=== PATIENT | female | born 1975 | race Caucasian/White ===

== ENCOUNTER 2017-02-25 05:57 | Inpatient (IN) | payer OTHER ==
[~2017-02-25] VITALS: Ht 152.4 cm; Wt 50.8 kg
[~2017-02-25 05:57] MED LIST: CLARITIN10 MG PO
[2017-02-25] MEDS ORDERED: BUPIVACAINE-MPF/EPI 0.5% 30 ML VIAL INJ ONE (07:28)
[2017-02-25] MEDS ORDERED: CLINDAMYCIN 900 MG in DEXTROSE 5% 100 ML IV ONE (07:30)
[2017-02-25] MEDS ORDERED: DEXAMETHASONE 4 MG/ML VIAL ONE (07:35)
[2017-02-25] MEDS ORDERED: ONDANSETRON 4 MG/2 ML VIAL ONE (07:35)
[2017-02-25] MEDS ORDERED: GLYCOPYRROLATE 0.2 MG/ML VIAL ONE (07:35)
[2017-02-25] MEDS ORDERED: KETOROLAC 30 MG/ML VIAL ONE (07:35)
[2017-02-25] MEDS ORDERED: PHENYLEPHRINE 10 MG/ML VIAL ONE (07:35)
[2017-02-25] MEDS ORDERED: PROPOFOL 200 MG/20 ML VIAL IV ONE (07:35)
[2017-02-25] MEDS ORDERED: SUCCINYLCHOLINE CHLORIDE 200 MG/10 ML VIAL IVP ONE (07:35)
[2017-02-25] MEDS ORDERED: DESFLURANE 240 ML BTL INH ONE (07:35)
[2017-02-25] MEDS ORDERED: LIDOCAINE 2% 100 MG/5 ML SYR IVP ONE (07:35)
[2017-02-25] MEDS ORDERED: ROCURONIUM 50 MG/5 ML VIAL IV ONE (07:35)
[2017-02-25] MEDS ORDERED: MIDAZOLAM 2 MG/2 ML VIAL ONE (07:44)
[2017-02-25] MEDS ORDERED: fentaNYL 0.05 MG/ML VIAL ONE (07:45)
[2017-02-25] MEDS ORDERED: ONDANSETRON 4 MG/2 ML VIAL IVP PRN (08:05)
[2017-02-25] MEDS: HYDROmorphone 1 MG/ML AMP IVP PRN ×4 (09:00→09:30)
--- NOTE | 2017-02-25 09:07 | NUR ---
CM NOTE PER SET DESIGNER FRANCIA EXT [id number], REVIEWS SHOULD GO TO [facility]. INITIAL REVIEW SENT TO [facility] FAX# [phone] PH# [phone] [facility] EXT [id number]
[2017-02-25] MEDS ORDERED: HYDROmorphone PFS 2 MG/ML SYR ONE (09:14)
--- NOTE | 2017-02-25 10:00 | NUR ---
RECEIVED PT FROM OR. AWAKE, ALERT ORIENTED X 4. NO SOB NOTED. BREATHING EVEN AND UNLABORED. DENIES PAIN AT THIS TIME. TRANSFERRED TO BED SAFELY AND COMFORTABLY. ABDOMINAL DRESSING INTACT. NO DISCHARGE NOTED. PT HAS PHAM CATHETER. DRAINING CLEAR YELLOW URINE. ELEVATED BED TO 30 DEGREES. INITIAL VITAL SIGNS TAKEN AND RECORDED. SAFETY PRECAUTION IN PLACE. CALL LIGHT WITHIN REACH.
[2017-02-25 10:04] VITALS: BP 123/73
[2017-02-25] MEDS: MORPHINE SULFATE 4 MG/ML SYR IM/IVP PRN ×3 (10:38→19:29)
--- NOTE | 2017-02-25 10:40 | NUR ---
PT COMPLAINED OF ABDOMINAL PAIN 8/10 MEDICATED ORDERED. NO SOB NOTED. FREQUENT CHECKS DONE.
[2017-02-25 12:00] VITALS: BP 124/89
[2017-02-25] MEDS: ONDANSETRON 4 MG/2 ML VIAL IVP PRN (12:36)
--- NOTE | 2017-02-25 14:00 | NUR ---
PREVIOUS IV ON RIGHT HAND G20 GOT INFILTRATED. REINSERTED G24 IV SALINE LOCK TO PT'S LEFT HAND.
[2017-02-25 16:00] VITALS: BP 132/86
--- NOTE | 2017-02-25 19:30 | NUR ---
PT ENDORSED TO UPCOMING SHIFT FOR CONTINUITY OF CARE. ENDORSED TO DO REASSESSMENT FOR PAIN MEDICATION MORPHINE PRN GIVEN AT 1930.
--- NOTE | 2017-02-25 19:31 | NUR ---
RECD. RESTING IN BED, AWAKE, A/OX4. RESPIRATION EVEN AND UNLABORED. IV SALINE LOCK AT THE LEFT HAND G 24. PATENT AND INTACT. INCISION IN THE ABDOMEN COVERED WITH DRESSING DRY AND INTACT. F/C PATENT DRAINING LIGHT ORANGE URINE. STATED NO HEAVY VAGINAL BLEEDING. JUST MEDICATED FOR PAIN BY AM NURSE, WILL CONTINUE TO MONITOR. PLAN OF CARE FOR THE SHIFT DISCUSSED. VERBALIZED UNDERSTANDING.
[2017-02-25 20:00] VITALS: BP 127/76
--- NOTE | 2017-02-25 20:00 | NUR ---
Patient's Plan of Care was discussed and reviewed with LEARNING SUPPORT AIDE: ROBER ABAD
--- NOTE | 2017-02-25 21:00 | NUR ---
INSTRUCTED TO ALTERNATELY TURN TO SIDES. COMPLAINT OF UNABLE TO SLEEP, WILL CALL MD FOR SLEEPING PILL.
[2017-02-25] MEDS ORDERED: TEMAZEPAM 15 MG CAP PO SCH (21:50)
[2017-02-25] MEDS: ACETAMINOPHEN/CODEINE 300/30MG 1 TAB PO PRN (22:42)
--- NOTE | 2017-02-25 22:42 | NUR ---
UNABLE TO SLEEP, MEDICATED WITH RESTORIL 15 MG. PO ORDERED.
--- NOTE | 2017-02-25 23:50 | NUR ---
SLEEPING COMFORTABLY IN BED.
[2017-02-26] VITALS: BP 135/72
[2017-02-26 04:00] VITALS: BP 125/69
[2017-02-26] MEDS: MORPHINE SULFATE 4 MG/ML SYR IM/IVP PRN ×2 (04:00→21:18)
[2017-02-26] MEDS: ONDANSETRON 4 MG/2 ML VIAL IVP PRN ×2 (04:02→21:18)
--- NOTE | 2017-02-26 04:02 | NUR ---
NAUSEATED, MEDICATED WITH ZOFRAN 4 MG. IVP BY DAKOTA FRIEDMAN.
--- NOTE | 2017-02-26 04:30 | NUR ---
RESTING IN BED, NO NAUSEA NOTED.
--- NOTE | 2017-02-26 05:30 | NUR ---
AWAKE IN BED, DISCONTINUED PHAM CATHETER. INSTRUCTED TO AMBULATE AND CALL NURSE FOR ASSISTANCE. VERBALIZED UNDERSTANDING.
--- NOTE | 2017-02-26 06:56 | NUR ---
CONDITION REMAIN STABLE. WILL ENDORSE TO AM NURSE FOR CONTINUITY OF CARE.
--- NOTE | 2017-02-26 07:05 | NUR ---
AMBULATED TO BR TO VOID, ABLE TO VOID MODERATE AMOUNT OF CLEAR YELLOW URINE. HAD SOME BLEEDING IN THE INCISION SITE. REINFORCED DRESSING BY CHARGE NURSE CLIFFORD. NO MORE BLEEDING NOTED.
--- NOTE | 2017-02-26 07:15 | NUR ---
ENDORSED TO DAKOTA MATTHEWS FOR CONTINUITY OF CARE.
--- NOTE | 2017-02-26 07:20 | NUR ---
RECEIVED REPORT FROM PHILLIP RICHTER. PT A/OX4, PT HAS A ABDOMINAL DRESSING FROM SURGICAL INCISION, IV ON THE LEFT AC, PATENT, INTACT, FLUSHING WELL, NO S/S OF RESPIRATORY DISTRESS OR DISCOMFORT NOTED, SAFETY/FALL PRECAUTIONS IN PLACE, DISCUSSED PLAN OF CARE WITH, PT VERBALIZED UNDERSTANDING, CALL LIGHT IS WITHIN REACH, WILL CONTINUE TO MONITOR.
[2017-02-26 08:00] VITALS: BP 99/63
[2017-02-26] MEDS: ACETAMINOPHEN/CODEINE 300/30MG 1 TAB PO PRN (08:10)
--- NOTE | 2017-02-26 08:52 | NUR ---
CM NOTE CONCURRENT REVIEW SENT TO [facility] FAX# [phone] PH# [phone] [facility] [id number]
--- NOTE | 2017-02-26 09:30 | NUR ---
PT RESTING IN BED, IS AT BEDSIDE.
[2017-02-26] MEDS: HYDROcodone/APAP 5/325 MG 1 TAB TAB PO PRN ×3 (10:18→17:58)
--- NOTE | 2017-02-26 11:30 | NUR ---
PT IS SLEEPING IN BED AT THIS TIME.
--- NOTE | 2017-02-26 13:39 | NUR ---
02/26/17 RD INITIAL ASSESSMENT COMPLETED PLEASE REFER TO NUTRITION ASSESSMENT UNDER CARE ACTIVITY FOR ESTIMATED NUTRITIONAL NEEDS. RD RECOMMENDATIONS: 1. WHEN MEDICALLY APPROPRIATE ADVANCE DIET TO REGULAR TOLERATED. 2. ENCOURAGE INCREASED PO INTAKE. 3. RD WILL F/U 3-5 DAYS; MODERATE RISK. PILLO ROSAS RD
--- NOTE | 2017-02-26 14:00 | NUR ---
PT RESTING IN BED, TALKING ON HER CELL PHONE.
--- NOTE | 2017-02-26 16:30 | NUR ---
PT RESTING IN BED, NO S/S OF RESPIRATORY DISTRESS OR DISCOMFORT NOTED, CALL LIGHT WITHIN REACH.
[2017-02-26 18:00] VITALS: BP 110/72
--- NOTE | 2017-02-26 19:10 | NUR ---
ENDORSED PT TO LVN. ROBER FOR CONTINUITY OF CARE. PT STABLE AT THIS TIME.
--- NOTE | 2017-02-26 19:15 | NUR ---
RECD. RESTING IN BED, AWAKE, A/OX4. RESPIRATION EVEN AND UNLABORED. IV SALINE LOCK AT THE LEFT HAND G 24, PATENT, INTACT. INCISION IN THE LOWER ABDOMEN COVERED WITH DRESSING WITH BINDER, DRY AND INTACT. STATED FEELING BETTER THAN YESTERDAY. PAIN IN THE SITE 11/18, WANTS TO BE MEDICATED LATER.TOLERATING DIET AND PASSING GAS BY BURPING. PLAN OF CARE FOR THE SHIFT DISCUSSED. VERBALIZED UNDERSTANDING.
--- NOTE | 2017-02-26 20:08 | NUR ---
Patient's Plan of Care was discussed and reviewed with SPECIALIST PHYSICIAN: ROBER ABAD
[2017-02-26 21:03] VITALS: BP 106/80
--- NOTE | 2017-02-26 22:30 | NUR ---
AMBULATED TO TO VOID, BACK TO BED AFTER VOIDING.
[2017-02-27] VITALS: BP 113/66
--- NOTE | 2017-02-27 00:10 | NUR ---
COMPLAINT OF DISCOMFORT IN THE INCISION SITE. CHECK DRESSING, NOTED SMALL AMOUNT OF BLOOD SEEPING THROUGH THE GUME. CHANGED DRESSING. MADE COMFORTABLE IN BED.
[2017-02-27] MEDS: MORPHINE SULFATE 4 MG/ML SYR IM/IVP PRN ×2 (01:46→10:09)
--- NOTE | 2017-02-27 04:00 | NUR ---
COMPLAINT OF FEELING SORENESS AT THE UPPER BACK AND LET HIP. ADVISED TO TURN TO SIDES WHEN SLEEPING.
--- NOTE | 2017-02-27 06:56 | NUR ---
CONDITION REMAIN STABLE. WILL ENDORSE TO AM NURSE FOR CONTINUITY OF CARE.
--- NOTE | 2017-02-27 07:10 | NUR ---
RECEIVED REPORT FROM THE HAMPER MAKER MACHINE NURSE AT BEDSIDE FOR CONTINUITY OF CARE. PT IS AWAKE AND ORIENTED. I INTRODUCED MYSELF AND UPDATED THE BOARD. PT IS S/P HYSTERECTOMY 02/25. PT STILL HAS HER ABD BINDER ON-DRESSING INTACT. GOAL FOR TODAY: GET UP AND SIT IN A CHAIR AND TRY TO AMBULATE. PT DID PASS GAS. NOTED PT'S IV ON L HAND 24G SL. NO LABS TODAY. DENIES PAIN, PAIN ONLY WHEN SHE MOVES. REFUSES PAIN MEDS AT THIS TIME. WILL CONTINUE TO MONITOR PT. DR. Brooke SUMNER WAS HERE.
--- NOTE | 2017-02-27 07:45 | NUR ---
PT V/S WITHIN NORMAL RANGE. DENIES PAIN. DENIES VAGINAL BLEEDING. WILL CONTINUE TO MONITOR PT.
[2017-02-27 08:00] VITALS: BP 108/66
--- NOTE | 2017-02-27 10:25 | NUR ---
CM NOTE CONCURRENT REVIEW SENT TO [facility] FAX# [phone] PH# [phone] [facility] [id number]
[2017-02-27] MEDS: HYDROcodone/APAP 5/325 MG 1 TAB TAB PO PRN ×3 (11:44→19:20)
--- NOTE | 2017-02-27 12:00 | NUR ---
PT SITTING IN CHAIR NEXT TO BED. PT IS IN PAIN. SHE WILL SIT FOR A LITTLE WHILE AND THEN, GO BACK TO BED.
--- NOTE | 2017-02-27 14:00 | NUR ---
WOUND CARE DONE. DRESSING CHANGED. HEALING WELL. NO DRAINAGE NOTED. WILL CONTINUE TO MONITOR PT.
--- NOTE | 2017-02-27 15:56 | NUR ---
REMOVED IV PER PT'S REQUEST. CANNULA INTACT. NO BLEEDING NOTED. PT IS DOING FINE. HAD A CALDWELL. GAVE HER NORCO. PT TOLERATED WELL. WILL CONTINUE TO MONITOR PT.
[2017-02-27 16:00] VITALS: BP 110/70
--- NOTE | 2017-02-27 17:10 | NUR ---
PT IS RESTING IN BED. NO SIGNS OF DISTRESS. WILL CONTINUE TO MONITOR PT.
--- NOTE | 2017-02-27 19:10 | NUR ---
ENDORSED PT TO THE [facility] ASSISTANT NURSE AT BEDSIDE FOR CONTINUITY OF CARE. PT C/O HEADACHE. WILL MEDICATE. OTHERWISE, PT IS IN STABLE CONDITION.
--- NOTE | 2017-02-27 19:20 | NUR ---
RECEIVED FROM AM RN IN BED AWAKE AND ALERT. NO SOB. IN BED AWAKE AND SITTING UP IN BED. ABLE TO VERBALIZE NEEDS WELL. CARE PLANS FOR THE NIGHT DISCUSSED WITH HER. AFEBRILE. DENIES ANY BLEEDING PER VAGINA. CALL LIGHT WITH IN REACH. A/O X 4. ROM X 4.
--- NOTE | 2017-02-27 21:41 | NUR ---
SLEEPING AT THIS TIME. MOTHER AT BEDSIDE. NO COMPLAINTS DONE. ENCOURAGED TO CALL FOR ANY HELP SHE MAY NEED OR IF SON HAS ANY SOB. "OK" PT. AFEBRILE. IVF SITE INTACT AND NO INFILTRATION NOTED.
--- NOTE | 2017-02-28 | NUR ---
PT. SLEEPING. NO RESTLESSNESS NOTED. IVF SITE NO INFILTRATION. CALL LIGHT WITH IN REACH.
[2017-02-28 00:11] VITALS: BP 112/70
[2017-02-28] MEDS: HYDROcodone/APAP 5/325 MG 1 TAB TAB PO PRN ×2 (01:14→08:03)
--- NOTE | 2017-02-28 01:18 | NUR ---
PT. AWAKE AND ASSISSTED TO RESTROOM TO URINATE. REQUESTED FOR PAIN RELIEVER AFTER RT SLIGHT PAIN TO INCISION SITE. MEDICATED REQUESTED. A/O X 4. ROM X 4. CLEAR SPEECH.
--- NOTE | 2017-02-28 04:44 | NUR ---
PT. AWAKE AND ASSISTED TO RESTROOM BY MOTHER. AFEBRILE. NO COMPLAINTS DONE. PROVIDED WITH JUICE AND COLD WATER REQUESTED BY MOTHER. CALL LIGHT WITH IN REACH AND ENCOURAGED TO CALL FOR ANY HELP SHE MAY NEED. NO SOB. DENIES PAIN.
--- NOTE | 2017-02-28 07:21 | NUR ---
PT. SLEEPING. WOKE UP EASILY WHEN TOUCHED. NO COMPLAINTS DONE. ENDORSED TO THE NEXT RN FOR CONTINUITY OF CARE.
--- NOTE | 2017-02-28 07:35 | NUR ---
PT LYING IN BED COMFORTABLY AND VOICED NO C/O PAIN AT THIS TIME. PT AAOX4 AND WAS IN NO DISTRESS. SHIFT ASSESSMENT DONE AND CHARTED. PLAN OF CARE, MEDS, TREATMENTS AND SAFETY DISCUSSED WITH PT AND PT VERBALIZED UNDERSTANDING. INCISION SITE TO LOWER ABDOMEN NOTED TO BE CLEAN, DRY AND INTACT WITH ABDOMINAL BINDER APPLIED ON TOP DRESSINGS. WILL CONTINUE TO MONITOR PT.
[2017-02-28 08:00] VITALS: BP 115/65
--- NOTE | 2017-02-28 10:41 | NUR ---
DR. Bola SUMNER WAS IN TO SEE PT AND MD LEFT PRESCRIPTIONS AND DISCHARGE INSTRUCTION. PT'S PRESENT AT BEDSIDE.
[2017-02-28] MEDS ORDERED: MOTRIN400 MG PO (10:49)
--- NOTE | 2017-02-28 11:20 | NUR ---
PRESCRIPTIONS AND DISCHARGE INSTRUCTIONS GIVEN TO PT AND PT VERBALIZED UNDERSTANDING. PT DISCHARGED TO HOME PER W/C ACCOMPANIED BY HER VIA PRIVATE VEHICLE IN A STABLE CONDITION. ALL PT'S BELONGING SENT WITH PT.
== END 2017-02-28 11:20 | disposition home or self-care (01) | DRG 513 ==
LOC: MMU 05:57 → MTU 09:33
PROVIDERS: ADMIT Obstetrics & Gynecology; ATTEND Obstetrics & Gynecology
PROC: 0UT90ZZ Resection of Uterus, Open Approach (ICD-10-PCS; principal; 2017-02-25 07:30)
DX: N92.1 Excessive and frequent menstruation with irregular cycle (principal); D25.9 Leiomyoma of uterus, unspecified; D64.9 Anemia, unspecified; Z88.0 Allergy status to penicillin